=== PATIENT | male | born 1985 | race Caucasian/White ===

== ENCOUNTER 2018-09-30 16:11 | Emergency (ER) | payer SELFPAY ==
[2018-09-30] MEDS ORDERED: LIDOCAINE 5% (700 MG) TRANSDERMAL ADH..PATCH TP ONE (17:54)
[2018-09-30] MEDS ORDERED: KETOROLAC TROMETHAMINE 60 MG/2 ML SDV IM ONE (17:54)
[2018-09-30] MEDS ORDERED: DEXAMETHASONE 4 MG TABLET PO ONE (17:54)
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
--- NOTE | 2018-09-30 18:39 | RADIOLOGY REPORT (SQ) ---
EXAM DESCRIPTION: L SPINE WHOLE COMPLETED DATE/TIME: 09/30/2018 6:30 pm REASON FOR STUDY: low back with sciatica to right COMPARISON: None. NUMBER OF VIEWS: Five views including obliques. TECHNIQUE: AP, lateral, oblique, and sacral radiographic images acquired of the lumbar spine. LIMITATIONS: None. FINDINGS: MINERALIZATION: Normal. SEGMENTATION: Normal. No transitional anatomy. ALIGNMENT: Anterolisthesis of L4 on L5. VERTEBRAE: Maintained height. No fracture or worrisome bone lesion. DISCS: Degenerative disc at L4-5. POSTERIOR ELEMENTS: Unilateral pars defects L4 on the left. HARDWARE: None in the spine. PARASPINAL SOFT TISSUES: Normal. PELVIS: Intact as visualized. No fractures or worrisome bone lesions. SI joints intact. OTHER: No other significant finding. IMPRESSION: Left-sided L4 spondylolysis and minimal spondylolisthesis. Disc spaces narrowing L4-5. TECHNICAL DOCUMENTATION: JOB ID: [id number] [employer]- All Rights Reserved Reading location - IP/workstation name: [email or web address]
[2018-09-30 20:21] VITALS: BP 135/88
== END 2018-09-30 19:30 | disposition home or self-care (01) ==
LOC: ER 16:11
DX: M54.41 Lumbago with sciatica, right side (principal); G89.29 Other chronic pain; M79.604 Pain in right leg; M25.561 Pain in right knee; F17.210 Nicotine dependence, cigarettes, uncomplicated; F12.99 Cannabis use, unspecified with unspecified cannabis-induced disorder
CPT/HCPCS: 99406; 99283; 96372; 72110; J1885